=== PATIENT | female | born 1945 | race African-American/Black ===

== ENCOUNTER 2017-08-03 14:54 | Inpatient (IN) | payer MEDICARE, OTHER ==
[~2017-08-03] VITALS: Ht 175.3 cm; Wt 77.1 kg
[~2017-08-03 14:54] MED LIST: ASPI-1158 PO; ATOR10TA69 PO; BENA40TA3 PO; FERR-63 PO; GLYB1TAB9 PO; INSULIN SUBCUT; NATE120T PO; NEBI10TA2 PO; OLME1TAB17 PO; OMEP20CA10 PO; SAXA2.5T; TOPXL5; VERA240C2 PO
[2017-08-03] MEDS ORDERED: SODIUM CHLORIDE 0.9% 1,000 ML IV ONE (15:22)
[2017-08-03] MEDS ORDERED: MORPHINE SULFATE 4 MG/ML CPJ (NOT FOR IM USE) IV STA (15:22)
[2017-08-03] MEDS ORDERED: ONDANSETRON HCL 4MG/2ML VIAL IV STA (15:22)
[2017-08-03] MEDS ORDERED: NITROFURANTOIN 100MG M/M CAPSULE PO ONE (15:30)
[2017-08-03 15:45] LABS: BASOPHILS % 0.1 % (0.0-2.0); CHLORIDE 111 mEq/L (98-107); EOSINOPHILS % 0.8 % (0.0-5.0); HEMATOCRIT. 30.9 % (36.0-48.0); HEMOGLOBIN. 10.1 g/dL (12.0-16.0); LYMPHOCYTES % 13.3 % (20.0-50.0); MEAN CORPUSCULAR VOLUME 88.6 fL (81.0-99.0); MEAN PLATELET VOLUME 7.7 fl (7.4-10.4); MONOCYTES % 5.9 % (2.0-8.0); NEUTROPHILS % 79.9 % (40.0-76.0); PLATELET 411 x1000/uL (130-400); RED BLOOD CELL COUNT 3.48 mill/uL (4.2-5.4); RED CELL DISTRIBUTION WIDTH 14.9 % (11.6-14.6)
[2017-08-03 15:50] LABS: PROTHROMBIN TIME 10.7 sec (9.4-11.6)
[2017-08-03] MEDS ORDERED: LEVOFLOXACIN 500MG PREMIX 100 ML IV ONE (18:00)
[2017-08-03] MEDS ORDERED: KETOROLAC 30MG/ML VIAL IV ONE (18:00)
[2017-08-03 22:07] VITALS: BP 126/59
[2017-08-03] MEDS ORDERED: HYDROMORPHONE HCL/PF 2MG/ML CPJ IV PRN (23:15)
[2017-08-03] MEDS: ONDANSETRON HCL 4MG/2ML VIAL IV PRN (23:56)
[2017-08-03] MEDS: ENOXAPARIN 40MG/0.4ML SYR SUBCUT SCH (23:56)
[2017-08-04 00:27] VITALS: BP 126/56
[2017-08-04] MEDS ORDERED: DEXTROSE 50% WATER 50ML SYRINGE IV PRN (00:30)
[2017-08-04] MEDS: DEXT 5%/0.45% NACL KCL 20MEQ/L 1,000 ML IV SCH ×3 (01:59→17:48)
[2017-08-04 04:00] VITALS: BP 122/52
[2017-08-04] MEDS: BLOOD SUGAR DIAGNOSTIC STRIP TEST SCH ×4 (06:33→21:35)
[2017-08-04] MEDS: OMEPRAZOLE 20MG CAPSULE EXTENDED RELEASE PO SCH (06:33)
[2017-08-04] MEDS: ONDANSETRON HCL 4MG/2ML VIAL IV PRN (06:33)
[2017-08-04] MEDS: INSULIN LISPRO 100 UNITS/ML SUBCUT SCH ×4 (07:34→21:00)
[2017-08-04 08:00] VITALS: BP 124/49
[2017-08-04] MEDS: METOPROLOL TARTRATE 25MG TABLET PO SCH ×2 (08:23→21:31)
[2017-08-04] MEDS: ATORVASTATIN CALCIUM 10MG TABLET PO SCH (08:48)
[2017-08-04] MEDS: ASPIRIN 81MG EC TABLET PO SCH (08:49)
[2017-08-04] MEDS: LISINOPRIL 40MG TABLET PO SCH (08:49)
[2017-08-04 12:00] VITALS: BP 123/63
[2017-08-04] MEDS ORDERED: DIPHENHYDRAMINE 25MG CAPSULE PO PRN (12:45)
[2017-08-04] MEDS ORDERED: POLYETHYLENE GLYCOL 3350 (17GM) 1 DOSE PACK PO SCH (12:45)
[2017-08-04] MEDS ORDERED: HYDROCODONE/ACETAMINOPHEN 5/325MG TABLET PO PRN (12:45)
[2017-08-04] MEDS ORDERED: NICOTINE 21MG PATCH TD SCH (14:00)
[2017-08-04] MEDS: NITROFURANTOIN 100MG M/M CAPSULE PO SCH ×2 (14:23→21:44)
[2017-08-04 15:49] LABS: HEMOGLOBIN 8.6 g/dL (12.0-16.0); MEAN CORPUSCULAR HEMOGLOBIN 29.6 pg (28.0-32.0); PLATELET 346 x1000/uL (130-400); RED BLOOD CELL COUNT 2.92 mill/uL (4.2-5.4); RED CELL DISTRIBUTION WIDTH 14.8 % (11.6-14.6)
[2017-08-04 15:54] LABS: CHLORIDE 107 mEq/L (98-107)
[2017-08-04 16:00] VITALS: BP 136/52
[2017-08-04] MEDS: DOCUSATE SODIUM 100MG CAPSULE PO SCH (17:43)
[2017-08-04 20:00] VITALS: BP 138/59
[2017-08-04] MEDS: ENOXAPARIN 40MG/0.4ML SYR SUBCUT SCH (21:32)
[2017-08-05] VITALS: BP 127/61
[2017-08-05] MEDS: DEXT 5%/0.45% NACL KCL 20MEQ/L 1,000 ML IV SCH (01:03)
[2017-08-05 04:00] VITALS: BP 113/53
[2017-08-05] MEDS: BLOOD SUGAR DIAGNOSTIC STRIP TEST SCH ×2 (05:31→12:02)
[2017-08-05 06:15] LABS: HEMATOCRIT 24.8 % (36.0-48.0); HEMOGLOBIN 8.3 g/dL (12.0-16.0); MEAN CORPUSCULAR HEMOGLOBIN 29.7 pg (28.0-32.0); MEAN CORPUSCULAR VOLUME 88.4 fL (81.0-99.0); PLATELET 312 x1000/uL (130-400); RED BLOOD CELL COUNT 2.81 mill/uL (4.2-5.4); RED CELL DISTRIBUTION WIDTH 14.4 % (11.6-14.6)
[2017-08-05] MEDS: OMEPRAZOLE 20MG CAPSULE EXTENDED RELEASE PO SCH (06:24)
[2017-08-05] MEDS: INSULIN LISPRO 100 UNITS/ML SUBCUT SCH ×2 (06:25→12:42)
[2017-08-05 06:28] LABS: CHLORIDE 111 mEq/L (98-107)
[2017-08-05 08:00] VITALS: BP 146/47
[2017-08-05] MEDS: LISINOPRIL 40MG TABLET PO SCH (08:33)
[2017-08-05] MEDS: DOCUSATE SODIUM 100MG CAPSULE PO SCH (08:33)
[2017-08-05] MEDS: NITROFURANTOIN 100MG M/M CAPSULE PO SCH (08:33)
[2017-08-05] MEDS: ATORVASTATIN CALCIUM 10MG TABLET PO SCH (08:33)
[2017-08-05] MEDS: METOPROLOL TARTRATE 25MG TABLET PO SCH (08:34)
[2017-08-05] MEDS: ASPIRIN 81MG EC TABLET PO SCH (08:34)
[2017-08-05] MEDS ORDERED: POLYETHYLENE GLYCOL 3350 (17GM) 1 DOSE PACK PO SCH (09:00)
[2017-08-05] MEDS ORDERED: NICOTINE 21MG PATCH TD SCH (09:00)
[2017-08-05 12:00] VITALS: BP 118/49
[2017-08-05 15:46] VITALS: BP 128/48
== END 2017-08-05 17:00 | disposition home or self-care (01) | DRG 690 ==
LOC: ER 14:54 → 5WST 18:32 → EDBEDREQ 18:36 → ENRESERV 18:54 → 5WST 08-04 15:50
PROVIDERS: ADMIT Internal Medicine; ATTEND Internal Medicine
DX: N39.0 Urinary tract infection, site not specified (principal); D64.9 Anemia, unspecified; E11.9 Type 2 diabetes mellitus without complications; E86.0 Dehydration; E78.00 Pure hypercholesterolemia, unspecified; F17.210 Nicotine dependence, cigarettes, uncomplicated; I10 Essential (primary) hypertension; L29.9 Pruritus, unspecified; Z86.73 Personal history of transient ischemic attack (TIA), and cerebral infarction without residual deficits; Z88.0 Allergy status to penicillin; Z90.710 Acquired absence of both cervix and uterus; Z79.82 Long term (current) use of aspirin; Z79.4 Long term (current) use of insulin; Z79.899 Other long term (current) drug therapy
CPT/HCPCS: 36415; 71045; 74176; 80048; 80053; 82962; 83690; 83880; 84484; 85025; 85027; 85610; 93005; 96374; 96375; 97162; 97535; 99285; J1650; J1815; J1885; J1956; J2270; J2405; J7030

== ENCOUNTER 2017-09-26 12:25 | Inpatient (IN) | payer OTHER ==
[~2017-09-26] VITALS: Ht 175.3 cm; Wt 76.3 kg
[~2017-09-26 12:25] MED LIST changes: -BENA40TA3 PO; -GLYB1TAB9 PO; -INSULIN SUBCUT; -NATE120T PO; -NEBI10TA2 PO; -OLME1TAB17 PO; -SAXA2.5T; -TOPXL5; -VERA240C2 PO
[2017-09-26 16:04] LABS: EOSINOPHILS % 1.9 % (0.0-5.0); HEMATOCRIT. 33.8 % (36.0-48.0); LYMPHOCYTES % 18.8 % (20.0-50.0); MEAN CORPUSCULAR HEMOGLOBIN 27.4 pg (28.0-32.0); MEAN CORPUSCULAR VOLUME 83.9 fL (81.0-99.0); MONOCYTES % 7.1 % (2.0-8.0); NEUTROPHILS % 71.2 % (40.0-76.0); PLATELET 272 x1000/uL (130-400); RED BLOOD CELL COUNT 4.03 mill/uL (4.2-5.4); RED CELL DISTRIBUTION WIDTH 19.2 % (11.6-14.6)
[2017-09-26 16:09] LABS: CHLORIDE 111 mEq/L (98-107)
[2017-09-26 16:11] LABS: PARTIAL THROMBOPLASTIN TIME 20.7 sec (23.4-31.0); PROTHROMBIN TIME 10.2 sec (9.4-11.6)
[2017-09-26 18:53] LABS: CLARITY URINE CLEAR (CLEAR); COLOR URINE YELLOW (YELLOW); KETONES URINE TRACE (NEGATIVE); LEUKOCYTE ESTERASE URINE NEGATIVE (NEGATIVE); NITRITE URINE NEGATIVE (NEGATIVE); OCCULT BLOOD URINE NEGATIVE (NEGATIVE); PROTEIN URINE NEGATIVE (NEGATIVE); SPECIFIC GRAVITY URINE 1.014 (1.005-1.030)
[2017-09-26 19:22] LABS: *BARBITURATES SCREEN URINE NEGATIVE (NEGATIVE)
[2017-09-26 19:23] LABS: *AMPHETAMINES SCREEN URINE NEGATIVE (NEGATIVE); *BENZODIAZEPINES SCREEN URINE NEGATIVE (NEGATIVE); *COCAINE SCREEN URINE NEGATIVE (NEGATIVE); METHADONE URINE SCREEN NEGATIVE (NEGATIVE); OPIATES URINE SCREEN NEGATIVE (NEGATIVE); PHENCYCLIDINE URINE SCREEN NEGATIVE (NEGATIVE)
[2017-09-26 19:24] LABS: CANNABINOID URINE SCREEN NEGATIVE (NEGATIVE)
[2017-09-26] MEDS ORDERED: LEVOFLOXACIN 500MG PREMIX 100 ML IV ONE (23:15)
[2017-09-27] VITALS (7 sets, daily range): BP systolic 132–170; BP diastolic 58–69
[2017-09-27] MEDS ORDERED: METF-815 PO (02:52)
[2017-09-27] MEDS ORDERED: OMEP40CA34 PO (02:52)
[2017-09-27] MEDS ORDERED: DOCU100T PO (02:52)
[2017-09-27] MEDS ORDERED: CLON-457 PO (02:52)
[2017-09-27] MEDS ORDERED: ATOR80TA PO (02:52)
[2017-09-27] MEDS ORDERED: BENA40TA3 PO (02:52)
[2017-09-27] MEDS ORDERED: VERA-4 PO (02:52)
[2017-09-27] MEDS ORDERED: IPRATROPIUM/ALBUTEROL 0.5-3(2.5)MG/3ML NEB HHN PRN (03:00)
[2017-09-27] MEDS ORDERED: DEXTROSE 50% WATER 50ML SYRINGE IV PRN (03:00)
[2017-09-27] MEDS ORDERED: MORPHINE SULFATE 4 MG/ML CPJ (NOT FOR IM USE) IV PRN (03:00)
[2017-09-27] MEDS ORDERED: ACETAMINOPHEN 325MG TABLET PO PRN (03:00)
[2017-09-27] MEDS ORDERED: CLONIDINE 0.1MG TABLET PO PRN (03:30)
[2017-09-27] MEDS: BLOOD SUGAR DIAGNOSTIC STRIP TEST SCH ×2 (05:48→11:45)
[2017-09-27] MEDS: HYDRALAZINE HCL 50MG TABLET PO SCH ×2 (05:55→12:55)
[2017-09-27] MEDS ORDERED: AZITHROMYCIN 500 MG in DEXT 5% WATER 250 ML IV SCH (06:00)
[2017-09-27] MEDS: INSULIN LISPRO 100 UNITS/ML SUBCUT SCH ×2 (06:14→12:55)
[2017-09-27] MEDS ORDERED: PANTOPRAZOLE 40MG DR TABLET PO SCH (06:45)
[2017-09-27 08:52] LABS: BASOPHILS % 0.9 % (0.0-2.0); EOSINOPHILS % 3.1 % (0.0-5.0); HEMATOCRIT. 33.9 % (36.0-48.0); LYMPHOCYTES % 19.6 % (20.0-50.0); MEAN CORPUSCULAR HEMOGLOBIN 27.2 pg (28.0-32.0); MEAN CORPUSCULAR VOLUME 83.9 fL (81.0-99.0); MEAN PLATELET VOLUME 8.7 fl (7.4-10.4); MONOCYTES % 8.7 % (2.0-8.0); NEUTROPHILS % 67.7 % (40.0-76.0); PLATELET 307 x1000/uL (130-400); RED BLOOD CELL COUNT 4.04 mill/uL (4.2-5.4)
[2017-09-27] MEDS ORDERED: ENOXAPARIN 30MG/0.3ML SYR SUBCUT SCH (09:00)
[2017-09-27] MEDS ORDERED: ENOXAPARIN 40MG/0.4ML SYR SUBCUT SCH (09:00)
[2017-09-27] MEDS ORDERED: ASPIRIN 81MG TABLET PO SCH (09:00)
[2017-09-27] MEDS ORDERED: LOSARTAN POTASSIUM 50 MG TABLET PO SCH (09:00)
[2017-09-28] MEDS ORDERED: AZITHROMYCIN 500 MG in DEXT 5% WATER 250 ML IV SCH (06:00)
== END 2017-09-27 17:30 | disposition home or self-care (01) | DRG 190 ==
LOC: ER 15:10 → 5WST 22:42 → ENRESERV 23:22 → CANRESERV 23:22 → EDRESERV 23:22 → ENRESERV 09-27 02:31
PROVIDERS: ADMIT Internal Medicine; ATTEND Internal Medicine
DX: J44.0 Chronic obstructive pulmonary disease with (acute) lower respiratory infection (principal); J18.9 Pneumonia, unspecified organism; J98.11 Atelectasis; E11.8 Type 2 diabetes mellitus with unspecified complications; E78.00 Pure hypercholesterolemia, unspecified; E86.0 Dehydration; F17.200 Nicotine dependence, unspecified, uncomplicated; I10 Essential (primary) hypertension; Z82.49 Family history of ischemic heart disease and other diseases of the circulatory system; Z90.710 Acquired absence of both cervix and uterus; Z88.0 Allergy status to penicillin; Z88.1 Allergy status to other antibiotic agents; Z79.82 Long term (current) use of aspirin; Z79.899 Other long term (current) drug therapy
CPT/HCPCS: 36415; 71045; 80053; 80305; 81003; 82962; 83036; 83880; 84484; 85025; 85610; 85730; 87040; 87086; 93005; 99285; J0456; J1650; J1815; J1956; J7050; J7060

== ENCOUNTER 2017-09-29 12:14 | Emergency (ER) | payer OTHER ==
[~2017-09-29] VITALS: Ht 175.3 cm; Wt 80.0 kg
[~2017-09-29 12:14] MED LIST changes: -ASPI-1158 PO; -ATOR10TA69 PO; +ATOR80TA PO; +BENA40TA3 PO; +CLON-457 PO; +DOCU100T PO; -FERR-63 PO; +METF-815 PO; -OMEP20CA10 PO; +OMEP40CA34 PO; +VERA-4 PO
[2017-09-29] MEDS ORDERED: IBUPROFEN 400MG TABLET PO ONE (12:45)
[2017-09-29 13:12] LABS: CHLORIDE 108 mEq/L (98-107)
[2017-09-29 13:14] LABS: PARTIAL THROMBOPLASTIN TIME 20.3 sec (23.4-31.0); PROTHROMBIN TIME 10.5 sec (9.4-11.6)
[2017-09-29 14:24] LABS: BASOPHILS % 1.3 % (0.0-2.0); EOSINOPHILS % 1.7 % (0.0-5.0); HEMATOCRIT. 35.3 % (36.0-48.0); HEMOGLOBIN. 11.4 g/dL (12.0-16.0); LYMPHOCYTES % 18.4 % (20.0-50.0); MEAN CORPUSCULAR HEMOGLOBIN 27.1 pg (28.0-32.0); MEAN CORPUSCULAR VOLUME 83.8 fL (81.0-99.0); MEAN PLATELET VOLUME 8.7 fl (7.4-10.4); MONOCYTES % 7.4 % (2.0-8.0); NEUTROPHILS % 71.2 % (40.0-76.0); RED BLOOD CELL COUNT 4.22 mill/uL (4.2-5.4); RED CELL DISTRIBUTION WIDTH 18.7 % (11.6-14.6)
[2017-09-29 14:28] LABS: PLATELET 332 x1000/uL (130-400)
[2017-09-29 14:48] LABS: T4 FREE 1.21 ng/dL (0.76-1.46)
[2017-09-29 18:57] VITALS: BP 142/72
== END 2017-09-29 19:52 | disposition home or self-care (01) ==
LOC: ER 13:23
DX: R00.2 Palpitations (principal); E11.42 Type 2 diabetes mellitus with diabetic polyneuropathy; R94.6 Abnormal results of thyroid function studies; E78.00 Pure hypercholesterolemia, unspecified; I10 Essential (primary) hypertension; F17.200 Nicotine dependence, unspecified, uncomplicated; Z90.710 Acquired absence of both cervix and uterus; Z88.0 Allergy status to penicillin; Z88.1 Allergy status to other antibiotic agents
CPT/HCPCS: 36415; 71045; 76536; 80053; 82962; 83690; 84439; 84443; 84484; 85025; 85610; 85730; 93005; 99285

== ENCOUNTER 2018-11-12 12:50 | Inpatient (IN) | payer OTHER ==
[~2018-11-12] VITALS: Ht 175.3 cm; Wt 77.1 kg
[~2018-11-12 12:50] MED LIST changes: -BENA40TA3 PO; +BENA40TA9 PO; -VERA-4 PO; +VERA240T14 PO
[2018-11-12] MEDS ORDERED: ACETAMINOPHEN 325MG TABLET PO STA (14:07)
[2018-11-12 15:14] LABS: BASOPHILS % 0.8 % (0.0-2.0); EOSINOPHILS % 0.3 % (0.0-5.0); HEMATOCRIT. 39.1 % (36.0-48.0); HEMOGLOBIN. 12.8 g/dL (12.0-16.0); LYMPHOCYTES % 7.8 % (20.0-50.0); MEAN CORPUSCULAR VOLUME 85.6 fL (81.0-99.0); MEAN PLATELET VOLUME 8.3 fl (7.4-10.4); MONOCYTES % 4.4 % (2.0-8.0); NEUTROPHILS % 86.7 % (40.0-76.0); PLATELET 311 x1000/uL (130-400); RED BLOOD CELL COUNT 4.57 mill/uL (4.2-5.4); RED CELL DISTRIBUTION WIDTH 15.4 % (11.6-14.6)
[2018-11-12 15:19] LABS: CHLORIDE 110 mEq/L (98-107)
[2018-11-12] MEDS ORDERED: ASPIRIN 325MG EC TABLET PO ONE (16:45)
[2018-11-12] MEDS ORDERED: DEXTROSE 50% WATER 50ML SYRINGE IV PRN (21:15)
[2018-11-12] MEDS: INSULIN LISPRO (LOW DOSE) 100 UNITS/ML SUBCUT SCH (21:29)
[2018-11-13] VITALS (7 sets, daily range): BP systolic 128–151; BP diastolic 53–76
[2018-11-13] MEDS ORDERED: AMLO10TA80 MT (00:59)
[2018-11-13] MEDS ORDERED: ACET-2708 MT (01:00)
[2018-11-13] MEDS ORDERED: ACETAMINOPHEN 325MG TABLET PO PRN (01:30)
[2018-11-13] MEDS ORDERED: HYDROCODONE/ACETAMINOPHEN 5/325MG TABLET PO PRN (01:30)
[2018-11-13] MEDS ORDERED: DOCUSATE SODIUM 100MG CAPSULE PO PRN (01:45)
[2018-11-13] MEDS: SULFAMETHOXAZOLE/TRIMETHOPRIM 400/80MG TAB PO SCH ×2 (05:14→21:18)
[2018-11-13 06:27] LABS: BASOPHILS % 0.7 % (0.0-2.0); EOSINOPHILS % 1.1 % (0.0-5.0); HEMATOCRIT. 35.6 % (36.0-48.0); HEMOGLOBIN. 11.9 g/dL (12.0-16.0); LYMPHOCYTES % 17.2 % (20.0-50.0); MEAN CORPUSCULAR HEMOGLOBIN 28.5 pg (28.0-32.0); MEAN CORPUSCULAR VOLUME 85.3 fL (81.0-99.0); MEAN PLATELET VOLUME 8.5 fl (7.4-10.4); MONOCYTES % 7.4 % (2.0-8.0); NEUTROPHILS % 73.6 % (40.0-76.0); PLATELET 252 x1000/uL (130-400); RED BLOOD CELL COUNT 4.17 mill/uL (4.2-5.4); RED CELL DISTRIBUTION WIDTH 15.4 % (11.6-14.6)
[2018-11-13 06:29] LABS: CHLORIDE 111 mEq/L (98-107)
[2018-11-13 06:45] LABS: LDL CHOLESTEROL 45 mg/dL (5-100)
[2018-11-13 06:47] LABS: HDL CHOLESTEROL 70 mg/dL (40-59)
[2018-11-13] MEDS: BLOOD SUGAR DIAGNOSTIC STRIP TEST SCH ×4 (06:50→21:18)
[2018-11-13 09:19] LABS: CLARITY URINE CLEAR (CLEAR); COLOR URINE YELLOW (YELLOW); KETONES URINE NEGATIVE (NEGATIVE); LEUKOCYTE ESTERASE URINE NEGATIVE (NEGATIVE); NITRITE URINE NEGATIVE (NEGATIVE); OCCULT BLOOD URINE 2+ (NEGATIVE); PROTEIN URINE 1+ (NEGATIVE); SPECIFIC GRAVITY URINE 1.013 (1.005-1.030); UROBILINOGEN URINE 0.2 E.U./dL (0.2-1.0)
[2018-11-13 09:47] LABS: *BARBITURATES SCREEN URINE NEGATIVE (NEGATIVE); *BENZODIAZEPINES SCREEN URINE NEGATIVE (NEGATIVE); *COCAINE SCREEN URINE NEGATIVE (NEGATIVE); CANNABINOID URINE SCREEN NEGATIVE (NEGATIVE); METHADONE URINE SCREEN NEGATIVE (NEGATIVE); OPIATES URINE SCREEN NEGATIVE (NEGATIVE); PHENCYCLIDINE URINE SCREEN NEGATIVE (NEGATIVE)
[2018-11-13 09:48] LABS: *AMPHETAMINES SCREEN URINE NEGATIVE (NEGATIVE)
[2018-11-13] MEDS: AMLODIPINE 10MG TABLET PO SCH (10:39)
[2018-11-13] MEDS: INSULIN LISPRO (LOW DOSE) 100 UNITS/ML SUBCUT SCH ×4 (10:43→21:33)
[2018-11-13] MEDS ORDERED: METFORMIN HCL 500MG TABLET PO NR (16:00)
[2018-11-13] MEDS ORDERED: ATORVASTATIN CALCIUM 40MG TABLET PO SCH (21:00)
[2018-11-14] VITALS: BP 128/55
[2018-11-14 04:00] VITALS: BP 123/63
[2018-11-14] MEDS: BLOOD SUGAR DIAGNOSTIC STRIP TEST SCH ×2 (06:30→12:20)
[2018-11-14 08:00] VITALS: BP_SYST 131; BP_SYST 136; BP_DIAS 58; BP_DIAS 65
[2018-11-14 08:05] VITALS: BP 129/71
[2018-11-14] MEDS: SULFAMETHOXAZOLE/TRIMETHOPRIM 400/80MG TAB PO SCH (09:09)
[2018-11-14] MEDS: AMLODIPINE 10MG TABLET PO SCH (09:09)
[2018-11-14] MEDS: INSULIN LISPRO (LOW DOSE) 100 UNITS/ML SUBCUT SCH ×2 (09:10→13:26)
[2018-11-14 12:00] VITALS: BP 139/67
[2018-11-14] MEDS ORDERED: ASPIRIN 81MG TABLET PO SCH (14:00)
[2018-11-14] MEDS ORDERED: PANTOPRAZOLE 40MG DR TABLET PO SCH (14:00)
[2018-11-14 14:25] VITALS: BP 139/67
== END 2018-11-14 15:48 | disposition home health service (06) | DRG 74 ==
LOC: ER 12:50 → EDBEDREQ 18:20 → SUPCPDRO 18:28 → ENRESERV 23:23 → 6WST 11-13 00:07
PROVIDERS: ADMIT Internal Medicine; ATTEND Internal Medicine
DX: G90.8 Other disorders of autonomic nervous system (principal); N39.0 Urinary tract infection, site not specified; E04.2 Nontoxic multinodular goiter; E11.65 Type 2 diabetes mellitus with hyperglycemia; E78.00 Pure hypercholesterolemia, unspecified; E78.5 Hyperlipidemia, unspecified; E86.0 Dehydration; F17.210 Nicotine dependence, cigarettes, uncomplicated; I10 Essential (primary) hypertension; I25.10 Atherosclerotic heart disease of native coronary artery without angina pectoris; K21.9 Gastro-esophageal reflux disease without esophagitis; Z90.710 Acquired absence of both cervix and uterus; Z86.73 Personal history of transient ischemic attack (TIA), and cerebral infarction without residual deficits; Z88.0 Allergy status to penicillin; Z88.8 Allergy status to other drugs, medicaments and biological substances; Z79.899 Other long term (current) drug therapy; Z79.84 Long term (current) use of oral hypoglycemic drugs; Z87.01 Personal history of pneumonia (recurrent); Z87.440 Personal history of urinary (tract) infections; S80.212A Abrasion, left knee, initial encounter; W18.39XA Other fall on same level, initial encounter; Y93.89 Activity, other specified; Y92.89 Other specified places as the place of occurrence of the external cause; Y99.8 Other external cause status
CPT/HCPCS: 36415; 70486; 70551; 71045; 73521; 73560; 80061; 80305; 81003; 82962; 84484; 93005; 93306; 93880; 93970; 96374; 97162; 99285; J1815